=== PATIENT | female | born 1995 | race American Indian/Alaskan Native ===

== ENCOUNTER 2016-08-28 22:26 | Emergency (ER) | payer MEDICAID ==
[2016-08-28 22:32] VITALS: BP 179/81
[2016-08-28] MEDS ORDERED: Azithromycin 250 MG Tab PO ONE (22:47)
--- NOTE | 2016-08-28 22:57 | EDM.PDOC ---
ED HPI GENERAL MEDICAL PROBLEM - General Chief Complaint: ENT Problem Stated Complaint: SORE THROAT, BODY ACHES Time Seen by Provider: 08/28/16 22:48 Source of Information: Reports: Patient History Limitations: Reports: No limitations - History of Present Illness INITIAL COMMENTS - FREE TEXT/NARRATIVE: This 21 yo female patient reports to the ED with a 2-3 day history of a sore throat. The patient has not been seen in the clinic for these symptoms. The patient has been taking Tylenol and ibuprofen. Onset Date: 08/25/16 Duration: Constant, Getting worse Location: Reports: neck Quality: Reports: Ache, Sharp Severity: moderate Improves with: Reports: Medication Worsens with: Reports: Eating Treatments CYLINDER DEVALVER: Reports: Acetaminophen, NSAIDS, Other medication(s) Generalized Pain Score (Numeric/FACES): 7 - Related Data Allergies Allergy/AdvReac Type Severity Reaction Status Date / Time lansoprazole [From Prevacid] Allergy Hives Verified 08/28/16 22:39 Penicillins Allergy Hives Verified 08/28/16 22:39 Home Meds: Home Meds . 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: Neurological History: Reports: Concussion, Migraines Psychiatric History: Reports: Depression Endocrine/Metabolic History: Reports: Obesity/BMI 30+ Social & Family History - Family History Family Medical History: Noncontributory - Tobacco Use Smoking Status *Q: Unknown Ever Smoked Years of Tobacco use: 12 Packs/Tins Daily: 0.5 Used Tobacco, but Quit: No Second Hand Smoke Exposure: Yes - Caffeine Use Caffeine Use: Reports: Coffee - Alcohol Use Days Per Week of Alcohol Use: 0 - Recreational Drug Use Recreational Drug Use: No ED ROS ENT - Review of Systems Review Of Systems: ROS reveals no pertinent complaints other than HPI. ED EXAM, ENT - Physical Exam Exam: See Below Exam Limited By: No limitations General Appearance: alert, WD/WN, moderate distress, obese Eye Exam: bilateral eye: EOMI, normal inspection, PERRL Ears: normal external exam, normal canal, hearing grossly normal, normal TMs Nose: normal inspection, normal mucousa, no blood Mouth/Throat: Pharyngeal erythema, Tonsillar erythema, Tonsillar exudates Head: atraumatic, normocephalic Neck: normal inspection, supple, full range of motion, lymphadenopathy (L), lymphadenopathy (R), tender lateral Respiratory/Chest: no respiratory distress, lungs clear, normal breath sounds, no accessory muscle use, chest non-tender Cardiovascular: normal peripheral pulses, regular rate, rhythm, no edema, no gallop, no JVD, no murmur, no rub GI/Abdominal: Normal Bowel Sounds, Soft, Non-Tender, No Organomegaly, No Distention, No Abnormal Bruit, No Mass, Other (obese) (Female) Exam: Deferred Rectal (Female) Exam: Deferred Back: normal inspection, full range of motion Extremities: normal inspection, normal range of motion, non-tender, no pedal edema, normal capillary refill Neurological: alert, oriented, CN II-XII intact, normal cognition, normal gait, normal reflexes, no motor/sensory deficits Psychiatric: normal affect, normal mood Skin: Warm, Dry, Intact, Normal color, No rash Lymphatic: no adenopathy Course - Vital Signs Last Recorded V/S: Last Vital Signs Temp 37.0 C 08/28/16 22:30 Pulse 99 08/28/16 22:30 Resp 20 08/28/16 22:30 BP 179/81 H 08/28/16 22:30 Pulse Ox 100 08/28/16 22:30 - Orders/Labs/Meds Meds: Medications Discontinued Medications Generic Name Dose Route Start Last Admin Trade Name Robi PRN Reason Stop Dose Admin Azithromycin 500 mg 08/28/16 22:47 Zithromax PO 08/28/16 22:48 ONETIME ONE Departure - Departure Time of Disposition: 22:53 Disposition: Home, Self-Care 01 Condition: fair Clinical Impression: Strep pharyngitis - Discharge Information Instructions: Strep Throat, [id number] Forms: ED Department Discharge Care Plan Goals: The patient was advised of the examination and lab results during the visit. The patient was given an oral dose of Azithromycin while in the ED. The patient was discharged with a script for Azithromycin (250 mg) #4 to take 1 by mouth daily for 4 days. The patient should continue taking [id number] medications (Tylenol, ibuprofen) for temporary symptom relief. If the patient has any additional symptoms or concerns, the patient should follow-up with his primary care facility or return to the emergency department.
== END 2016-08-28 23:00 | disposition home or self-care (01) ==
LOC: DL.ED 22:26
DX: J02.0 Streptococcal pharyngitis (principal); K21.9 Gastro-esophageal reflux disease without esophagitis; G43.909 Migraine, unspecified, not intractable, without status migrainosus; F32.9 Major depressive disorder, single episode, unspecified; J45.909 Unspecified asthma, uncomplicated; Z88.0 Allergy status to penicillin
CPT/HCPCS: 87430; 99283; A9270

== ENCOUNTER 2016-08-30 12:05 | Emergency (ER) | payer MEDICAID ==
[2016-08-30 12:23] VITALS: BP 130/69
--- NOTE | 2016-08-30 12:32 | EDM.PDOC ---
[id number]: stomache pain [phone] Time Seen by Provider: 08/30/16 12:32 Source of Information: Reports: Patient, Old Records, RN, Significant Other History Limitations: Reports: No Limitations - History of Present Illness INITIAL COMMENTS - FREE TEXT/NARRATIVE: I have pain here, pointing to area of abdomen above the umbilicus. She was awakened once last night with the pain. She has had pain since this morning and has not eaten. Onset: Sudden Onset Date: 08/29/16 Onset Time: 06:30 Duration: Colic, Intermittent, Other (pain started about 1/2 hour after eating have a hot dog and some chips after a cook out last evening. The pain has been colicky, without radiation and lasts 10 minutes and resolves completely. The pain then recurrs.) Location: Reports: Other (She points to the area just above the umbilucus as to the pain location) Quality: Reports: Sharp Severity: Moderate Improves with: Reports: None Worsens with: Reports: None Context: Reports: Other (initially post-prandiol and then has been recurring. No prior history. No spicy or greasy food intolerance) Treatments ENERGY ASSISTANT: Reports: Acetaminophen Middle Abdominal Pain Score (Numeric/FACES): 8 - Related Data Allergies Allergy/AdvReac Type Severity Reaction Status Date / Time lansoprazole [From Prevacid] Allergy Hives Verified 08/30/16 12:20 Penicillins Allergy Hives Verified 08/30/16 12:20 Home Meds: Home Meds Azithromycin [Zithromax] 250 mg PO DAILY 08/30/16 [History] Past Medical History - Past Health History Medical/Surgical History: Denies Medical/Surgical History Respiratory History: Reports: Asthma, Bronchitis, Recurrent Gastrointestinal History: Reports: GERD 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: Neurological History: Reports: Concussion, Migraines Psychiatric History: Reports: Depression Endocrine/Metabolic History: Reports: Obesity/BMI 30+ Social & Family History - Family History Family Medical History: Noncontributory - Tobacco Use Smoking Status *Q: Never Smoker Years of Tobacco use: 12 Packs/Tins Daily: 0.5 Used Tobacco, but Quit: No Second Hand Smoke Exposure: No - Caffeine Use Caffeine Use: Reports: Coffee - Alcohol Use Days Per Week of Alcohol Use: 0 - Recreational Drug Use Recreational Drug Use: No ED ROS GENERAL - Review of Systems Review Of Systems: See Below Constitutional: Reports: Other (She had some body aches which have improved after starting the azithromycin). Denies: Fever HEENT: Reports: No Symptoms Respiratory: Reports: No Symptoms Cardiovascular: Reports: No Symptoms Endocrine: Denies: Fatigue GI/Abdominal: Reports: Abdominal Pain, Other (soft BM today which is normal for her. No BM yesteray.). Denies: Black Stool, Bloody Stool, Difficulty Swallowing , Distension, Nausea : Reports: No Symptoms, Other (currently menstruating) Musculoskeletal: Reports: Other (generalized body aches have improved) Skin: Reports: No Symptoms Neurological: Reports: No Symptoms. Denies: Headache Psychiatric: Reports: No Symptoms Hematologic/Lymphatic: Reports: No Symptoms ED EXAM, GI/ABD - Physical Exam Exam: See Below Exam Limited By: No Limitations General Appearance: Alert, WD/WN, No Apparent Distress Eyes: Bilateral: Normal Appearance Ears: Normal External Exam, Normal Canal, Hearing Grossly Normal, Normal TMs Nose: Normal Inspection, Normal Mucosa, No Blood Throat/Mouth: Normal Lips, Normal Gums, Normal Voice, Other (Tonsils enlarged, red and with thin exudates.) Neck: Normal Inspection, Supple, Non-Tender, Full Range of Motion Respiratory/Chest: No Respiratory Distress, Lungs Clear, Normal Breath Sounds, No Accessory Muscle Use, Chest Non-Tender Cardiovascular: Normal Peripheral Pulses, Regular Rate, Rhythm, No Edema, No Gallop, No JVD, No Murmur, No Rub GI/Abdominal: Normal Bowel Sounds, Soft, No Organomegaly, No Distention, Tenderness. No: Tympanic Bowel Sounds, Rebound (Tenderness in epigastrium and epigastrium. Mild guarding, but abdomen is soft.) Back Exam: Normal Inspection, Full Range of Motion. No: CVA Tenderness (L), CVA Tenderness (R), Muscle Spasm, Vertebral Tenderness Extremities: Normal Inspection, Normal Range of Motion, Non-Tender, Normal Capillary Refill, No Pedal Edema Neurological: Alert, Oriented, Normal Cognition Psychiatric: Normal Affect, Normal Mood Skin Exam: Warm, Dry, Intact, Normal Color, No Rash Lymphatic: Adenopathy (some bilateral mild to moderately enarged anterior upper cervical lymph node enlarged) Course - Vital Signs Last Recorded V/S: Last Vital Signs Temp 97.2 F 08/30/16 12:22 Pulse 88 08/30/16 12:22 Resp 20 08/30/16 12:22 BP 130/69 08/30/16 12:22 Pulse Ox 98 08/30/16 12:22 - Orders/Labs/Meds Labs: Laboratory Tests 08/30/16 08/30/16 08/30/16 Range/Units 12:06 12:06 12:35 WBC 15.2 H (5.0-10.0) 10^3/uL RBC 5.32 (4.2-5.4) 10^6/uL Hgb 12.4 (12.0-16.0) g/dL Hct 38.7 (37.0-47.0) % MCV 72.7 L (80-100) fL MCH 23.3 L (27.0-34.0) pg MCHC 32.0 L (33.0-35.0) g/dL Plt Count 293 (150-450) 10^3/uL Neut % (Auto) 51.1 (42.2-75.2) % Lymph % (Auto) 39.4 (20.5-50.1) % [place] % (Auto) 8.0 (2-8) % Eos % (Auto) 1.3 (1.0-3.0) % Baso % (Auto) 0.2 (0.0-1.0) % Sodium (135-145) mmol/L Potassium (3.6-5.0) mmol/L Chloride (101-111) mmol/L Carbon Dioxide (21.0-31.0) mmol/L Anion Gap BUN (7-18) mg/dL Creatinine (0.6-1.3) mg/dL Est Cr Clr Drug Dosing mL/min Estimated GFR (MDRD) BUN/Creatinine Ratio Glucose (74-105) mg/dL Calcium (8.4-10.2) mg/dl Total Bilirubin (0.2-1.0) mg/dL AST (10-42) IU/L ALT (10-60) IU/L Alkaline Phosphatase (42-121) IU/L Total Protein (6.7-8.2) g/dl Albumin (3.2-5.5) g/dl Globulin Albumin/Globulin Ratio Amylase (28-100) U/L Lipase (22-51) U/L Urine Color Straw (YELLOW) Urine Appearance Cloudy (CLEAR) Urine pH 5.5 (5.0-9.0) Ur Specific [place] 1.025 (1.005-1.030) Urine Protein 30 H (NEGATIVE) Urine Glucose (UA) Negative (NEGATIVE) Urine Ketones Negative (NEGATIVE) Urine Occult Blood Large H (NEGATIVE) Urine Nitrite Negative (NEGATIVE) Urine Bilirubin Small H (NEGATIVE) Urine Urobilinogen 0.2 (0.2-1.0) mg/dL Ur Leukocyte Esterase Trace H (NEGATIVE) Urine RBC 20-30 H /HPF Urine WBC 10-20 H (0-5/HPF) /HPF Ur Epithelial Cells Many H /HPF Urine Bacteria Many H (0-FEW/HPF) /HPF Urine Mucus Many H /LPF Urine HCG, Qual Negative 08/30/16 Range/Units 12:35 WBC (5.0-10.0) 10^3/uL RBC (4.2-5.4) 10^6/uL Hgb (12.0-16.0) g/dL Hct (37.0-47.0) % MCV (80-100) fL MCH (27.0-34.0) pg MCHC (33.0-35.0) g/dL Plt Count (150-450) 10^3/uL Neut % (Auto) (42.2-75.2) % Lymph % (Auto) (20.5-50.1) % [place] % (Auto) (2-8) % Eos % (Auto) (1.0-3.0) % Baso % (Auto) (0.0-1.0) % Sodium 135 (135-145) mmol/L Potassium 3.8 (3.6-5.0) mmol/L Chloride 106 (101-111) mmol/L Carbon Dioxide 23.0 (21.0-31.0) mmol/L Anion Gap 9.8 BUN 10 (7-18) mg/dL Creatinine 0.6 (0.6-1.3) mg/dL Est Cr Clr Drug Dosing 145.44 mL/min Estimated GFR (MDRD) > 60 BUN/Creatinine Ratio 16.66 Glucose 87 (74-105) mg/dL Calcium 8.5 (8.4-10.2) mg/dl Total Bilirubin 0.4 (0.2-1.0) mg/dL AST 32 (10-42) IU/L ALT 32 (10-60) IU/L Alkaline Phosphatase 109 (42-121) IU/L Total Protein 7.7 (6.7-8.2) g/dl Albumin 3.7 (3.2-5.5) g/dl Globulin 4.0 Albumin/Globulin Ratio 0.93 Amylase 35 (28-100) U/L Lipase 13 L (22-51) U/L Urine Color (YELLOW) Urine Appearance (CLEAR) Urine pH (5.0-9.0) Ur Specific [place] (1.005-1.030) Urine Protein (NEGATIVE) Urine Glucose (UA) (NEGATIVE) Urine Ketones (NEGATIVE) Urine Occult Blood (NEGATIVE) Urine Nitrite (NEGATIVE) Urine Bilirubin (NEGATIVE) Urine Urobilinogen (0.2-1.0) mg/dL Ur Leukocyte Esterase (NEGATIVE) Urine RBC /HPF Urine WBC (0-5/HPF) /HPF Ur Epithelial Cells /HPF Urine Bacteria (0-FEW/HPF) /HPF Urine Mucus /LPF Urine HCG, Qual Departure - Departure Time of Disposition: 14:38 Disposition: Against Medical Advice 07 Condition: good Clinical Impression: Abdominal pain Qualifiers: Abdominal location: unspecified location Qualified Code(s): R10.9 - Unspecified abdominal pain - Discharge Information Referrals: Sharon Hastings MD [Primary Care Provider] - Forms: ED Department Discharge
[2016-08-30 13:04] LABS: CHLORIDE,CL 106 mmol/L (101-111); SODIUM,NA 135 mmol/L (135-145)
--- NOTE | 2016-08-30 14:04 | US ---
Clinical history: 21-year-old 294 pound female with epigastric abdominal pain. Interpretation: Technically difficult exam (patient body habitus) unremarkable. Gallbladder normal size anatomic configuration identified in right upper quadrant beneath the liver margin is uniformly thin wall shows no sign of pericystic fluid, fixed intraluminal mucosal wall maxim yp or mobile dependent intraluminal "shadowing" gallstones. Homogeneous normal sono density the liver without sign discrete intrahepatic mass or intra/extrahepa tic biliary duct dilatation (common hepatic duct 4.3 mm and the common bile duct 6.7 mm). Pancreas obscured by gas. No ascites. CONCLUSION: Negative gallbladder and liver. Nonvisualization pancreas.
== END 2016-08-30 14:40 | disposition left against medical advice (07) ==
LOC: DL.ED 12:05
DX: R10.13 Epigastric pain (principal); J45.909 Unspecified asthma, uncomplicated; K21.9 Gastro-esophageal reflux disease without esophagitis; G43.909 Migraine, unspecified, not intractable, without status migrainosus; F32.9 Major depressive disorder, single episode, unspecified; E66.9 Obesity, unspecified; Z68.42 Body mass index [BMI] 45.0-49.9, adult; Z88.0 Allergy status to penicillin; Z88.8 Allergy status to other drugs, medicaments and biological substances
CPT/HCPCS: 36415; 76705; 80053; 81001; 81025; 82150; 83690; 85025; 87430; 99283

== ENCOUNTER 2017-02-24 06:36 | Day surgery (SDC) | payer MEDICAID ==
[~2017-02-24 06:36] MED LIST: Midazolam 1 MG/ML 2 ML SDV ONE; fentaNYL 100 MCG/2 ML SDV ONE
[2017-02-24] MEDS ORDERED: Midazolam 1 MG/ML 2 ML SDV IV ONE ×3 (06:37→07:50)
[2017-02-24] MEDS ORDERED: fentaNYL 100 MCG/2 ML SDV IV ONE ×3 (06:37→07:49)
[2017-02-24] MEDS ORDERED: Dextrose 5%-0.45% NaCl 1,000 ML IV SCH (07:10)
--- NOTE | 2017-02-24 08:48 | OR ---
DATE: 02/24/2017 PROCEDURE: Esophagogastroduodenoscopy and multiple pinch biopsies. INSTRUMENT USED: GIF-H180 Olympus video panendoscope. PREMEDICATIONS: No oral topical anesthesia used. Fentanyl 100 mcg intravenous, Versed 2 mg intravenous. The procedure was done under pulse oximetry, BP recording, and property assessment monitor. INDICATION: The patient with persistent abdominal pain, dyspepsia, heartburn, regurgitation, vomiting, as well as hematemesis, unexplained, and not responsive to medical measures. History of alcohol ingestion, large amount at times. Esophagogastroduodenoscopy is performed for detection of any active erosive lesions, Bella esophagus and/or malignancy also under consideration, H. pylori status to be determined. Endoscopic hemostasis therapy if needed. DESCRIPTION OF PROCEDURE: The scope was passed with ease. Adequate visualization of the esophagus was made from proximal to distal areas. No upper esophageal lesions identified. No distal esophageal stricture. No uphill or downhill esophageal varices. No Lu-Edwards tear. No evidence of erosive esophagitis by Universal criteria. No esophageal polyp or tumor mass identified. Z-line was seen at around 40 cm distal to the oral verge, configuration consistent with grade 1 by ZAP classification. No proximal gastric varices noted. Gastric fundus examination by retroflexion showed no polypoid lesions. No gastric ulcer, malignant mass, or vascular ectasia identified. Scattered gastric antral erosions were noted without bleeding from them. Duodenal bulb showed no ulcer. Visualized second part of the duodenum was unremarkable. Multiple pinch biopsies were taken from the gastric antrum and proximal body and sent for PyloriTek test for H. pylori, and if negative in an hour, tissue is to be sent for histopathology. No bleeding was noted from any of the visualized areas at the completion of examination. Photographs were taken of the duodenal bulb, gastric antrum, fundus, and distal esophagus. IMPRESSION: Gastric antral erosions. The patient tolerated the procedure well. [facility] /[id number]
[2017-02-24 10:28] VITALS: BP 129/77
== END 2017-02-24 09:47 | disposition home or self-care (01) ==
LOC: DL.ENDO 06:36
PROVIDERS: ATTEND Internal Medicine Gastroenterology
DX: K31.89 Other diseases of stomach and duodenum (principal); F17.210 Nicotine dependence, cigarettes, uncomplicated; E66.09 Other obesity due to excess calories; J45.909 Unspecified asthma, uncomplicated; Z88.0 Allergy status to penicillin; Z88.8 Allergy status to other drugs, medicaments and biological substances; Z79.899 Other long term (current) drug therapy
CPT/HCPCS: 43239; 87077; J7042; J2250; J3010

== ENCOUNTER 2017-08-20 01:21 | Emergency (ER) | payer MEDICAID ==
[2017-08-20] MEDS ORDERED: Cyclobenzaprine 10 MG Tab PO ONE (01:22)
[2017-08-20] MEDS ORDERED: Ketorolac 30 MG/ML SDV IM ONE (01:50)
--- NOTE | 2017-08-20 01:57 | EDM.PDOC ---
ED HPI GENERAL MEDICAL PROBLEM - General Chief Complaint: Back Pain or Injury Stated Complaint: LOWER BACK PAIN [phone] Time Seen by Provider: 08/20/17 01:40 Source of Information: Reports: Patient History Limitations: Reports: No Limitations - History of Present Illness INITIAL COMMENTS - FREE TEXT/NARRATIVE: This 22 yo female patient reports to the ED with lower back pain with shooting pains into her left hip. The patient reports she has been doing a lot of yard work and was cleaning her car this evening when her back pain got too bad to handle. The patient reported that she took an Aleve with little symptom relief. Onset: Today Duration: Constant Location: Reports: Back Quality: Reports: Ache Severity: Moderate Improves with: Reports: None Worsens with: Reports: None Associated Symptoms: Reports: No Other Symptoms Lower Back Pain Score (Numeric/FACES): 6 - Related Data Allergies Allergy/AdvReac Type Severity Reaction Status Date / Time lansoprazole [From Prevacid] Allergy Hives Verified 08/20/17 01:30 Penicillins Allergy Hives Verified 08/20/17 01:30 Home Meds: Home Meds . 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 OB/BYN History: delivered 02/2016 Musculoskeletal History: Reports: Fracture Other Musculoskeletal History: RIB FRACTURE, FX OF TIBIAL TUBERCLE, LEFT WRIST FX Neurological History: Reports: Concussion, Migraines Psychiatric History: Reports: Anxiety, Depression Endocrine/Metabolic History: Reports: Obesity/BMI 30+ Hematologic History: Reports: None Immunologic History: Reports: None Oncologic (Cancer) History: Reports: None Dermatologic History: Reports: Eczema - Infectious Disease History Infectious Disease History: Reports: None - Past Surgical History Head Surgeries/Procedures: Reports: None HEENT Surgical History: Reports: None Cardiovascular Surgical History: Reports: None Respiratory Surgical History: Reports: None GI Surgical History: Reports: None Female Surgical History: Reports: Other (See Below) Other Female Surgeries/Procedures: RIGHT BREAST CYST Endocrine Surgical History: Reports: None Neurological Surgical History: Reports: None Musculoskeletal Surgical History: Reports: None Oncologic Surgical History: Reports: None Dermatological Surgical History: Reports: None Social & Family History - Family History Family Medical History: Noncontributory - Tobacco Use Smoking Status *Q: Current Every Day Smoker Years of Tobacco use: 14 Packs/Tins Daily: 0.5 Used Tobacco, but Quit: No Second Hand Smoke Exposure: Yes - Caffeine Use Caffeine Use: Reports: Coffee, Soda - Alcohol Use Days Per Week of Alcohol Use: 0 - Recreational Drug Use Recreational Drug Use: No ED ROS GENERAL - Review of Systems Review Of Systems: ROS reveals no pertinent complaints other than HPI. ED EXAM,LOWER BACK PAIN/INJURY - Physical Exam Exam: See Below Exam Limited By: No Limitations General Appearance: Alert, WD/WN, Mild Distress, Obese Eye Exam: Bilateral Eye: EOMI, Normal Inspection, PERRL Ears: Normal External Exam, Normal Canal, Hearing Grossly Normal, Normal TMs Nose: Normal Inspection, Normal Mucosa, No Blood Throat/Mouth: Normal Inspection, Normal Lips, Normal Teeth, Normal Gums, Normal Oropharynx, Normal Voice, No Airway Compromise Head: Atraumatic, Normocephalic Neck: Normal Inspection, Supple, Non-Tender, Full Range of Motion Respiratory/Chest: No Respiratory Distress, Lungs Clear, Normal Breath Sounds, No Accessory Muscle Use, Chest Non-Tender Cardiovascular: Normal Peripheral Pulses, Regular Rate, Rhythm, No Edema, No Gallop, No JVD, No Murmur, No Rub GI/Abdominal: Normal Bowel Sounds, Soft, Non-Tender, No Organomegaly, No Distention, No Abnormal Bruit, No Mass, Other (obese) (Female) Exam: Deferred Rectal (Female) Exam: Deferred Back Exam: Vertebral Tenderness (lower back (L4) radiating to her hips (left)) Extremities: Normal Inspection, Normal Range of Motion, Non-Tender, No Pedal Edema, Normal Capillary Refill Neurological: Alert, Normal Mood/Affect, Normal Dorsiflexion, CN II-XII Intact, Normal Plantar Flexion, Normal Gait, Normal Reflexes, No Motor/Sensory Deficits , Oriented x 3 Psychiatric: Normal Affect, Normal Mood Skin Exam: Warm, Dry, Intact, Normal Color, No Rash Lymphatic: No Adenopathy Course - Vital Signs Last Recorded V/S: Last Vital Signs Temp 36.6 C 08/20/17 01:23 Pulse 69 08/20/17 01:23 Resp BP 123/73 08/20/17 01:23 Pulse Ox 98 08/20/17 01:23 - Orders/Labs/Meds Meds: Medications Discontinued Medications Generic Name Dose Route Start Last Admin Trade Name Robi PRN Reason Stop Dose Admin Ketorolac Tromethamine 60 mg 08/20/17 01:50 Toradol IM 08/20/17 01:51 ONETIME ONE Departure - Departure Time of Disposition: 01:55 Disposition: Home, Self-Care 01 Condition: Fair Clinical Impression: Low back pain Qualifiers: Chronicity: acute Back pain laterality: midline Sciatica presence: with sciatica Sciatica laterality: sciatica of left side Qualified Code(s): M54.42 - Lumbago with sciatica, left side - Discharge Information Instructions: Back Pain, Adult, [id number], Muscle Strain, [id number] Care Plan Goals: The patient was advised of the examination results. The patient was given an injection of Toradol while in the ED. The patient was discharged with a Flexeril (10 mg) to take at bedtime. The patient was also given a script for Toradol (10 mg) #20 to take 1 by mouth every 6 hours and Flexeril (10 mg) #10 to take 1 by mouth at bedtime as needed. If the patient has any additional symptoms or concerns, the patient should follow-up with her primary care facility or return to the emergency department.
[2017-08-20] MEDS ORDERED: Cyclobenzaprine 10 MG Tab ONE (02:01)
[2017-08-20 02:26] VITALS: BP 128/65
== END 2017-08-20 02:23 | disposition home or self-care (01) ==
LOC: DL.ED 01:21
DX: M54.42 Lumbago with sciatica, left side (principal); F17.210 Nicotine dependence, cigarettes, uncomplicated; Z88.0 Allergy status to penicillin; Z88.8 Allergy status to other drugs, medicaments and biological substances
CPT/HCPCS: 96372; 99283; J1885; A9270-GY

== ENCOUNTER 2017-09-21 22:44 | Emergency (ER) | payer MEDICAID ==
[2017-09-21] MEDS ORDERED: Albuterol/Ipratropium 3.0-0.5 MG/3 ML Neb Soln NEB ONE (23:38)
[2017-09-22] MEDS ORDERED: predniSONE 20 MG Tab PO ONE (00:27)
--- NOTE | 2017-09-22 00:31 | EDM.PDOC ---
ED HPI GENERAL MEDICAL PROBLEM - General Chief Complaint: Respiratory Problem Stated Complaint: CHEST TIGHT AFTER INHALER [id number] Time Seen by Provider: 09/21/17 23:10 Source of Information: Reports: Patient History Limitations: Reports: No Limitations - History of Present Illness INITIAL COMMENTS - FREE TEXT/NARRATIVE: Inhaler not helping today, cough, wheeze. No Fever. Hx asthma. Daily inhaler use Bilateral Chest Pain Score (Numeric/FACES): 7 - Related Data Allergies Allergy/AdvReac Type Severity Reaction Status Date / Time lansoprazole [From Prevacid] Allergy Hives Verified 09/21/17 23:01 Penicillins Allergy Hives Verified 09/21/17 23:01 Home Meds: Home Meds Albuterol Sulfate 2.5 mg IH Q4HR PRN 09/21/17 [History] Albuterol [Proventil HFA] 2 puff INH Q4H PRN 09/21/17 [History] Past Medical History - Past Health History Medical/Surgical History: Denies Medical/Surgical History HEENT History: Reports: Otitis Media Cardiovascular History: Reports: None Respiratory History: Reports: Asthma, Bronchitis, Recurrent Gastrointestinal History: Reports: Chronic Constipation, Chronic Diarrhea, GERD , Irritable Bowel Syndrome, Other (See Below) Other Gastrointestinal History: GASTROENTERITIS Genitourinary History: Reports: None 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 02/2016 Musculoskeletal History: Reports: Fracture Other Musculoskeletal History: RIB FRACTURE, FX OF TIBIAL TUBERCLE, LEFT WRIST FX Neurological History: Reports: Concussion, Migraines Psychiatric History: Reports: Anxiety, Depression Endocrine/Metabolic History: Reports: Obesity/BMI 30+ Hematologic History: Reports: None Immunologic History: Reports: None Oncologic (Cancer) History: Reports: None Dermatologic History: Reports: Eczema - Infectious Disease History Infectious Disease History: Reports: None - Past Surgical History Head Surgeries/Procedures: Reports: None HEENT Surgical History: Reports: None Cardiovascular Surgical History: Reports: None Respiratory Surgical History: Reports: None GI Surgical History: Reports: None Female Surgical History: Reports: Other (See Below) Other Female Surgeries/Procedures: RIGHT BREAST CYST Endocrine Surgical History: Reports: None Neurological Surgical History: Reports: None Musculoskeletal Surgical History: Reports: None Oncologic Surgical History: Reports: None Dermatological Surgical History: Reports: None Social & Family History - Family History Family Medical History: Noncontributory - Tobacco Use Smoking Status *Q: Former Smoker Used Tobacco, but Quit: Yes Month/Year Tobacco Last Used: august 2017 Second Hand Smoke Exposure: Yes - Caffeine Use Caffeine Use: Reports: Coffee, Soda - Recreational Drug Use Recreational Drug Use: No ED ROS GENERAL - Review of Systems Review Of Systems: See Below Constitutional: Reports: No Symptoms HEENT: Reports: Throat Pain (cough) Respiratory: Reports: Shortness of Breath, Wheezing, Pleuritic Chest Pain, Cough. Denies: Sputum Cardiovascular: Reports: No Symptoms GI/Abdominal: Reports: No Symptoms Musculoskeletal: Reports: No Symptoms Skin: Reports: No Symptoms Neurological: Reports: No Symptoms Psychiatric: Reports: No Symptoms ED EXAM, GENERAL - Physical Exam Exam: See Below Exam Limited By: No Limitations General Appearance: Alert Eye Exam: Bilateral Eye: EOMI Ears: Normal External Exam, Hearing Grossly Normal Ear Exam: Bilateral Ear: TM normal Nose: Normal Inspection Throat/Mouth: Normal Inspection Head: Atraumatic, Normocephalic Neck: Normal Inspection Respiratory/Chest: Decreased Breath Sounds, Wheezing (bilateral throughout), Prolonged Expiration GI/Abdominal: Normal Bowel Sounds Back Exam: Normal Inspection Extremities: Normal Inspection, Normal Range of Motion Psychiatric: Normal Affect Skin Exam: Warm, Dry, Intact, Normal Color Course - Vital Signs Last Recorded V/S: Last Vital Signs Temp 97.4 F 09/22/17 01:23 Pulse 85 09/22/17 01:23 Resp 14 09/22/17 01:23 BP 145/65 H 09/22/17 01:23 Pulse Ox 99 09/22/17 01:23 - Orders/Labs/Meds Labs: Laboratory Tests 09/21/17 Range/Units 23:45 HCG, Qual Negative Meds: Medications Discontinued Medications Generic Name Dose Route Start Last Admin Trade Name Freq PRN Reason Stop Dose Admin Albuterol/Ipratropium 3 ml 09/21/17 23:38 09/21/17 23:41 Duoneb 3.0-0.5 Mg/3 Ml NEB 09/21/17 23:39 3 ml ONETIME ONE Administration Prednisone 40 mg 09/22/17 00:27 09/22/17 00:36 Prednisone PO 09/22/17 00:28 40 mg ONETIME ONE Administration - Radiology Interpretation Free Text/Narrative:: CXR negative - Re-Assessments/Exams Free Text/Narrative Re-Assessment/Exam: 09/25/17 14:23 Improved airexchange following Nebulizer, Decreased cough, Conversing full sentences. Departure - Departure Time of Disposition: 01:15 Disposition: Home, Self-Care 01 Condition: Good Clinical Impression: Acute asthma - Discharge Information Instructions: Asthma, Adult Referrals: Gary Mancilla [employer] [Primary Care Provider] - Forms: ED Department Discharge Additional Instructions: Prednisone 40x 3 days, 30 x 3 days, 20 x 3 days, 10 x 3 days Continue nebulizer treatments every 4 hours as needed increase fluid intake follow up if not improving or symptoms worsen
[2017-09-22 01:24] VITALS: BP 145/65
== END 2017-09-22 01:24 | disposition home or self-care (01) ==
LOC: DL.ED 22:44
DX: J45.909 Unspecified asthma, uncomplicated (principal); E66.9 Obesity, unspecified; Z87.891 Personal history of nicotine dependence; Z88.0 Allergy status to penicillin; Z88.8 Allergy status to other drugs, medicaments and biological substances
CPT/HCPCS: 36415; 71046; 84703; 99284; A9270

== ENCOUNTER 2017-11-11 03:22 | Emergency (ER) | payer MEDICAID ==
[2017-11-11] MEDS ORDERED: Albuterol/Ipratropium 3.0-0.5 MG/3 ML Neb Soln NEB ONE (03:35)
--- NOTE | 2017-11-11 03:42 | EDM.PDOC ---
ED HPI GENERAL MEDICAL PROBLEM - General Chief Complaint: Respiratory Problem Stated Complaint: DIFFICULTY BREATHING [id number] Time Seen by Provider: 11/11/17 03:30 Source of Information: Reports: Patient History Limitations: Reports: No Limitations - History of Present Illness INITIAL COMMENTS - FREE TEXT/NARRATIVE: This 22 yo female patient reports to the ED with increased shortness of breath. The patient reports she started to have symptoms this morning. The patient reports she has taken 40 mg of Prednisone 2 times today and done 2 nebulizer treatments with no change in her symptoms. The patient also reports she has been congested for the past 24 hours. The patient has not been seen by her primary care provider. Onset Date: 11/10/17 Onset Time: 05:00 Duration: Constant Location: Reports: Generalized Quality: Reports: Other Severity: Moderate Improves with: Reports: None Worsens with: Reports: None Associated Symptoms: Reports: Cough, Shortness of Breath Lower Back Pain Score (Numeric/FACES): 5 - Related Data Allergies Allergy/AdvReac Type Severity Reaction Status Date / Time lansoprazole [From Prevacid] Allergy Hives Verified 11/11/17 03:31 Penicillins Allergy Hives Verified 11/11/17 03:31 Home Meds: Home Meds Albuterol Sulfate 2.5 mg IH Q4HR PRN 09/21/17 [History] Albuterol [Proventil HFA] 2 puff INH Q4H PRN 09/21/17 [History] predniSONE 20 mg PO DAILY 11/11/17 [History] Past Medical History - Past Health History Medical/Surgical History: Denies Medical/Surgical History HEENT History: Reports: Otitis Media Cardiovascular History: Reports: None Respiratory History: Reports: Asthma, Bronchitis, Recurrent Gastrointestinal History: Reports: Chronic Constipation, Chronic Diarrhea, GERD , Irritable Bowel Syndrome, Other (See Below) Other Gastrointestinal History: GASTROENTERITIS Genitourinary History: Reports: None 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 Musculoskeletal History: Reports: Fracture Other Musculoskeletal History: RIB FRACTURE, FX OF TIBIAL TUBERCLE, LEFT WRIST FX Neurological History: Reports: Concussion, Migraines Psychiatric History: Reports: Anxiety, Depression Endocrine/Metabolic History: Reports: Obesity/BMI 30+ Hematologic History: Reports: None Immunologic History: Reports: None Oncologic (Cancer) History: Reports: None Dermatologic History: Reports: Eczema - Infectious Disease History Infectious Disease History: Reports: None - Past Surgical History Head Surgeries/Procedures: Reports: None HEENT Surgical History: Reports: None Cardiovascular Surgical History: Reports: None Respiratory Surgical History: Reports: None GI Surgical History: Reports: None Female Surgical History: Reports: Other (See Below) Other Female Surgeries/Procedures: RIGHT BREAST CYST Endocrine Surgical History: Reports: None Neurological Surgical History: Reports: None Musculoskeletal Surgical History: Reports: None Oncologic Surgical History: Reports: None Dermatological Surgical History: Reports: None Social & Family History - Family History Family Medical History: Noncontributory - Tobacco Use Smoking Status *Q: Former Smoker Used Tobacco, but Quit: Yes Month/Year Tobacco Last Used: 2 month - Caffeine Use Caffeine Use: Reports: Coffee, Soda - Recreational Drug Use Recreational Drug Use: No ED ROS GENERAL - Review of Systems Review Of Systems: ROS reveals no pertinent complaints other than HPI. ED EXAM, GENERAL - Physical Exam Exam: See Below Exam Limited By: No Limitations General Appearance: Alert, WD/WN, Moderate Distress, Obese Eye Exam: Bilateral Eye: EOMI, Normal Inspection, PERRL Ears: Normal External Exam, Normal Canal, Hearing Grossly Normal, Normal TMs Nose: Normal Inspection, Normal Mucosa, No Blood Throat/Mouth: Normal Inspection, Normal Lips, Normal Teeth, Normal Gums, Normal Oropharynx, Normal Voice, No Airway Compromise Head: Atraumatic, Normocephalic Neck: Normal Inspection, Supple, Non-Tender, Full Range of Motion Respiratory/Chest: Decreased Breath Sounds, Rhonchi, Wheezing Cardiovascular: Normal Peripheral Pulses, Regular Rate, Rhythm, No Edema, No Gallop, No JVD, No Murmur, No Rub GI/Abdominal: Normal Bowel Sounds, Soft, Non-Tender, No Organomegaly, No Distention, No Abnormal Bruit, No Mass (Female) Exam: Deferred Rectal (Female) Exam: Deferred Back Exam: Normal Inspection, Full Range of Motion, NT Extremities: Normal Inspection, Normal Range of Motion, Non-Tender, Normal Capillary Refill, No Pedal Edema Neurological: Alert, Oriented, CN II-XII Intact, Normal Cognition, Normal Gait, Normal Reflexes, No Motor/Sensory Deficits Psychiatric: Normal Affect, Normal Mood Skin Exam: Warm, Dry, Intact, Normal Color, No Rash Lymphatic: No Adenopathy Course - Vital Signs Last Recorded V/S: Last Vital Signs Temp 37.3 C 11/11/17 03:25 Pulse 111 H 11/11/17 03:25 Resp 24 H 11/11/17 03:25 BP 147/92 H 11/11/17 03:25 Pulse Ox 94 L 11/11/17 03:25 - Orders/Labs/Meds Orders: Active Orders 24 hr Category Date Time Status RT Aerosol Therapy [RC] ASDIRECTED Care 11/11/17 03:35 Ordered Labs: Laboratory Tests 11/11/17 11/11/17 Range/Units 03:42 03:42 WBC 12.3 H (5.0-10.0) 10^3/uL RBC 5.28 (4.2-5.4) 10^6/uL Hgb 13.1 (12.0-16.0) g/dL Hct 40.9 (37.0-47.0) % MCV 77.5 L D (80-100) fL MCH 24.8 L (27.0-34.0) pg MCHC 32.0 L (33.0-35.0) g/dL Plt Count 293 (150-450) 10^3/uL Neut % (Auto) 69.3 (42.2-75.2) % Lymph % (Auto) 23.3 (20.5-50.1) % [place] % (Auto) 6.8 (2-8) % Eos % (Auto) 0.3 L (1.0-3.0) % Baso % (Auto) 0.3 (0.0-1.0) % Sodium 138 (135-145) mmol/L Potassium 3.5 L (3.6-5.0) mmol/L Chloride 108 (101-111) mmol/L Carbon Dioxide 22.0 (21.0-31.0) mmol/L Anion Gap 11.5 BUN 11 (7-18) mg/dL Creatinine 0.7 (0.6-1.3) mg/dL Est Cr Clr Drug Dosing 123.63 mL/min Estimated GFR (MDRD) > 60 BUN/Creatinine Ratio 15.71 Glucose 164 H (74-105) mg/dL Calcium 8.6 (8.4-10.2) mg/dl Total Bilirubin 0.4 (0.2-1.0) mg/dL AST 23 (10-42) IU/L ALT 18 (10-60) IU/L Alkaline Phosphatase 108 (42-121) IU/L Total Protein 7.8 (6.7-8.2) g/dl Albumin 3.5 (3.2-5.5) g/dl Globulin 4.3 Albumin/Globulin Ratio 0.81 Meds: Medications Discontinued Medications Generic Name Dose Route Start Last Admin Trade Name Robi PRN Reason Stop Dose Admin Albuterol/Ipratropium 3 ml 11/11/17 03:35 11/11/17 03:39 Duoneb 3.0-0.5 Mg/3 Ml NEB 11/11/17 03:36 3 ml ONETIME ONE Administration Ceftriaxone Sodium 1 gm 11/11/17 04:16 Rocephin IVPUSH 11/11/17 04:17 ONETIME ONE Departure - Departure Time of Disposition: 04:18 Disposition: Home, Self-Care 01 Condition: Fair Clinical Impression: Asthma exacerbation Qualifiers: Asthma severity: moderate Asthma persistence: persistent Qualified Code(s): J45.41 - Moderate persistent asthma with (acute) exacerbation URI (upper respiratory infection) Qualifiers: URI type: unspecified URI Qualified Code(s): J06.9 - Acute upper respiratory infection, unspecified - Discharge Information *PRESCRIPTION DRUG MONITORING PROGRAM REVIEWED*: Not Applicable *COPY OF PRESCRIPTION DRUG MONITORING REPORT IN PATIENT DIPIKA: Not Applicable Instructions: Acute Bronchitis, Adult, [id number], Asthma, Adult, Easy-to- Read Forms: ED Department Discharge Care Plan Goals: The patient was advised of the examination, lab and x-ray results during the visit. The patient was given a DuoNeb treatment and a dose of IV Rocephin while in the ED. The patient was discharged with a script for Omnicef (300 mg) to take 1 by mouth 2 times per day for 7 days and Prednisone (20 mg) #8 to take 2 by mouth daily for 4 days. If the patient has any additional symptoms or concerns, the patient should follow-up with her primary care facility or return to the emergency department. - My Orders Last 24 Hours: My Active Orders 11/11/17 03:35 RT Aerosol Therapy [RC] ASDIRECTED - Assessment/Plan Last 24 Hours: My Active Orders 11/11/17 03:35 RT Aerosol Therapy [RC] ASDIRECTED
[2017-11-11 04:08] LABS: ANION GAP 11.5; CHLORIDE,CL 108 mmol/L (101-111); SODIUM,NA 138 mmol/L (135-145)
[2017-11-11] MEDS ORDERED: cefTRIAXone 1 GM Vial IVPUSH ONE (04:16)
[2017-11-11 04:27] VITALS: BP 134/77
== END 2017-11-11 04:30 | disposition home or self-care (01) ==
LOC: DL.ED 03:22
DX: J45.41 Moderate persistent asthma with (acute) exacerbation (principal); J06.9 Acute upper respiratory infection, unspecified; J45.909 Unspecified asthma, uncomplicated; F32.9 Major depressive disorder, single episode, unspecified; F41.9 Anxiety disorder, unspecified; Z88.0 Allergy status to penicillin; Z79.899 Other long term (current) drug therapy; Z87.891 Personal history of nicotine dependence
CPT/HCPCS: 36415; 71046; 80053; 85025; 96374; 99284; J0696

== ENCOUNTER 2017-11-29 07:29 | Emergency (ER) | payer MEDICAID ==
[2017-11-29 07:51] VITALS: BP 106/80
[2017-11-29] MEDS ORDERED: Acetaminophen 325 MG Tab PO ONE (07:57)
--- NOTE | 2017-11-29 08:25 | EDM.PDOC ---
ED HPI GENERAL MEDICAL PROBLEM - General Chief Complaint: Upper Extremity Injury/Pain Stated Complaint: LEFT ARM, ABOVE ELBOW Time Seen by Provider: 11/29/17 07:45 Source of Information: Reports: Patient, Family (), RN, RN Notes Reviewed History Limitations: Reports: Intoxication - History of Present Illness INITIAL COMMENTS - FREE TEXT/NARRATIVE: Pt states that she "got really drunk" last night and fell while checking into a hotel. She presents to the ER this morning with c/o pain to the left elbow as a result from the fall last night. She admits to a few other bruises and minor scrapes but is not concerned with them. Denies head injury or LOC. Onset: Today Duration: Constant Location: Reports: Upper Extremity, Left Quality: Reports: Ache Severity: Moderate Improves with: Reports: None Worsens with: Reports: None Associated Symptoms: Reports: No Other Symptoms Left Elbow Pain Score (Numeric/FACES): 9 - Related Data Allergies Allergy/AdvReac Type Severity Reaction Status Date / Time lansoprazole [From Prevacid] Allergy Hives Verified 11/11/17 03:31 Penicillins Allergy Hives Verified 11/11/17 03:31 Home Meds: Home Meds Albuterol Sulfate 2.5 mg IH Q4HR PRN 09/21/17 [History] Albuterol [Proventil HFA] 2 puff INH Q4H PRN 09/21/17 [History] Past Medical History - Past Health History Medical/Surgical History: Denies Medical/Surgical History HEENT History: Reports: Otitis Media Cardiovascular History: Reports: None Respiratory History: Reports: Asthma, Bronchitis, Recurrent Gastrointestinal History: Reports: Chronic Constipation, Chronic Diarrhea, GERD , Irritable Bowel Syndrome, Other (See Below) Other Gastrointestinal History: GASTROENTERITIS Genitourinary History: Reports: None 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 Musculoskeletal History: Reports: Fracture Other Musculoskeletal History: RIB FRACTURE, FX OF TIBIAL TUBERCLE, LEFT WRIST FX Neurological History: Reports: Concussion, Migraines Psychiatric History: Reports: Anxiety, Depression Endocrine/Metabolic History: Reports: Obesity/BMI 30+ Hematologic History: Reports: None Immunologic History: Reports: None Oncologic (Cancer) History: Reports: None Dermatologic History: Reports: Eczema - Infectious Disease History Infectious Disease History: Reports: None - Past Surgical History Head Surgeries/Procedures: Reports: None HEENT Surgical History: Reports: None Cardiovascular Surgical History: Reports: None Respiratory Surgical History: Reports: None GI Surgical History: Reports: None Female Surgical History: Reports: Other (See Below) Other Female Surgeries/Procedures: RIGHT BREAST CYST Endocrine Surgical History: Reports: None Neurological Surgical History: Reports: None Musculoskeletal Surgical History: Reports: None Oncologic Surgical History: Reports: None Dermatological Surgical History: Reports: None Social & Family History - Family History Family Medical History: Noncontributory - Tobacco Use Smoking Status *Q: Light Tobacco Smoker Years of Tobacco use: 14 Packs/Tins Daily: 1 - Caffeine Use Caffeine Use: Reports: Coffee - Alcohol Use Days Per Week of Alcohol Use: 3 Number of Drinks Per Day: 12 Total Drinks Per Week: 36 - Recreational Drug Use Recreational Drug Use: No - Living Situation & Occupation Living situation: Reports: , with Spouse Review of Systems - Review of Systems Review Of Systems: ROS reveals no pertinent complaints other than HPI. ED EXAM, GENERAL - Physical Exam Exam: See Below Exam Limited By: No Limitations General Appearance: Alert, WD/WN, No Apparent Distress, Obese Nose: Normal Inspection Throat/Mouth: Normal Inspection, Normal Lips, Normal Voice, No Airway Compromise Head: Atraumatic, Normocephalic Neck: Normal Inspection, Supple, Non-Tender, Full Range of Motion Respiratory/Chest: No Respiratory Distress Cardiovascular: Normal Peripheral Pulses Back Exam: Normal Inspection, Full Range of Motion Extremities: Normal Capillary Refill, Arm Pain (left elbow with full but painful ROM with no visible bruising). No: Joint Swelling Neurological: Alert, Oriented, CN II-XII Intact, Normal Cognition, Normal Gait, No Motor/Sensory Deficits Psychiatric: Normal Affect, Normal Mood Skin Exam: Warm, Dry (superficial abrasions to B/L elbows) Course - Vital Signs Last Recorded V/S: Last Vital Signs Temp 37.4 C 11/29/17 07:38 Pulse 108 H 11/29/17 07:38 Resp 22 H 11/29/17 07:38 BP 106/80 11/29/17 07:38 Pulse Ox 98 11/29/17 07:38 - Orders/Labs/Meds Orders: Active Orders 24 hr Category Date Time Status Vaccines to be Administered [RC] PER UNIT ROUTINE Care 11/29/17 08:39 Ordered Diphth,Pertuss(Acell),Tet Vac [Adacel] Med 11/29/17 08:39 Once 0.5 ml IM .ONCE ONE DME for Discharge [COMM] Routine Oth 11/29/17 08:38 Ordered Medication Orders Diphtheria/Tetanus/Acell Pertussis (Adacel) 0.5 ml IM .ONCE ONE Stop: 11/29/17 08:40 Meds: Medications Generic Name Dose Route Start Last Admin Trade Name Freq PRN Reason Stop Dose Admin Diphtheria/Tetanus/Acell Pertussis 0.5 ml 11/29/17 08:39 Adacel IM 11/29/17 08:40 .ONCE ONE Discontinued Medications Generic Name Dose Route Start Last Admin Trade Name Freq PRN Reason Stop Dose Admin Acetaminophen 650 mg 11/29/17 07:57 11/29/17 08:06 Tylenol PO 11/29/17 07:58 650 mg NOW ONE Administration Bacitracin 1 dose 11/29/17 08:38 Bacitracin Oint 1 Gm TOP 11/29/17 08:39 ONETIME ONE - Radiology Interpretation Free Text/Narrative:: XR Left Elbow: no fracture, see Rad. report. Departure - Departure Time of Disposition: 08:45 Disposition: Home, Self-Care 01 Condition: Good Clinical Impression: Abrasions of multiple sites Sprain of left elbow Qualifiers: Encounter type: initial encounter Qualified Code(s): S53.402A - Unspecified sprain of left elbow, initial encounter - Discharge Information Instructions: RICE for Routine Care of Injuries, [id number], How to Use a Sling, [id number] Forms: ED Department Discharge Additional Instructions: Activity as tolerated. Follow up in clinic if not improving in 5 to 7 days as expected. - My Orders Last 24 Hours: My Active Orders 11/29/17 08:38 DME for Discharge [COMM] Routine 11/29/17 08:39 Vaccines to be Administered [RC] PER UNIT ROUTINE Diphth,Pertuss(Acell),Tet Vac [Adacel] 0.5 ml IM .ONCE ONE - Assessment/Plan Last 24 Hours: My Active Orders 11/29/17 08:38 DME for Discharge [COMM] Routine 11/29/17 08:39 Vaccines to be Administered [RC] PER UNIT ROUTINE Diphth,Pertuss(Acell),Tet Vac [Adacel] 0.5 ml IM .ONCE ONE
[2017-11-29] MEDS ORDERED: Bacitracin Oint 1 GM U/D Packet TOP ONE (08:38)
[2017-11-29] MEDS ORDERED: Diphtheria,Pertussis(Acell),Tetanus Vaccine 0.5 ML SDV IM ONE (08:39)
== END 2017-11-29 08:54 | disposition home or self-care (01) ==
LOC: DL.ED 07:29
DX: S53.402A Unspecified sprain of left elbow, initial encounter (principal); S50.311A Abrasion of right elbow, initial encounter; Z88.0 Allergy status to penicillin; Z88.8 Allergy status to other drugs, medicaments and biological substances; E66.9 Obesity, unspecified; F17.210 Nicotine dependence, cigarettes, uncomplicated; W19.XXXA Unspecified fall, initial encounter; Y92.59 Other trade areas as the place of occurrence of the external cause
CPT/HCPCS: 73080; 90471; 90715; 99283; A9270

== ENCOUNTER 2018-12-17 17:39 | Emergency (ER) | payer SELFPAY ==
[2018-12-17 17:52] VITALS: BP 126/67
[2018-12-17] MEDS ORDERED: Albuterol/Ipratropium 3.0-0.5 MG/3 ML Neb Soln NEB ONE (19:56)
[2018-12-17] MEDS ORDERED: Azithromycin 250 MG Tab PO ONE (19:57)
[2018-12-17] MEDS ORDERED: predniSONE 20 MG Tab PO ONE (19:57)
[2018-12-17] MEDS ORDERED: Albuterol 6.7 GM Inhaler INH ONE (20:13)
--- NOTE | 2018-12-17 20:19 | EDM.PDOC ---
ED HPI GENERAL MEDICAL PROBLEM - General Chief Complaint: Respiratory Problem Stated Complaint: SICK Time Seen by Provider: 12/17/18 19:15 Source of Information: Reports: Patient History Limitations: Reports: No Limitations - History of Present Illness INITIAL COMMENTS - FREE TEXT/NARRATIVE: ED with c/o SOB x 4 days, sore throat x 3 days. Hx asthma, has run out of inhaler Rx. Now living in [place], here visiting. No fevers. Smoker 1/2 pack per day unable to last 2 days . Coughing productive at times. Wheezing. No GI sx. Left ear pain. Bilateral Chest Pain Score (Numeric/FACES): 5 - Related Data Allergies Allergy/AdvReac Type Severity Reaction Status Date / Time Penicillins Allergy Intermediate Hives Verified 12/17/18 17:54 lansoprazole [From Prevacid] Allergy Hives Verified 11/11/17 03:31 Home Meds: Home Meds Albuterol Sulfate 2.5 mg IH Q4HR PRN 09/21/17 [History] Albuterol [Proventil HFA] 2 puff INH Q4H PRN 09/21/17 [History] Past Medical History - Past Health History Medical/Surgical History: Denies Medical/Surgical History HEENT History: Reports: Otitis Media Cardiovascular History: Reports: None Respiratory History: Reports: Asthma, Bronchitis, Recurrent Gastrointestinal History: Reports: Chronic Constipation, Chronic Diarrhea, GERD , Irritable Bowel Syndrome, Other (See Below) Other Gastrointestinal History: GASTROENTERITIS Genitourinary History: Reports: None 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 [employer]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[employer]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 [employer] 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: 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 02/2016 Musculoskeletal History: Reports: Fracture Other Musculoskeletal History: RIB FRACTURE, FX OF TIBIAL TUBERCLE, LEFT WRIST FX Neurological History: Reports: Concussion, Migraines Psychiatric History: Reports: Anxiety, Depression Endocrine/Metabolic History: Reports: Obesity/BMI 30+ Hematologic History: Reports: None Immunologic History: Reports: None Oncologic (Cancer) History: Reports: None Dermatologic History: Reports: Eczema - Infectious Disease History Infectious Disease History: Reports: None - Past Surgical History Head Surgeries/Procedures: Reports: None HEENT Surgical History: Reports: None Cardiovascular Surgical History: Reports: None Respiratory Surgical History: Reports: None GI Surgical History: Reports: None Female Surgical History: Reports: Other (See Below) Other Female Surgeries/Procedures: RIGHT BREAST CYST Endocrine Surgical History: Reports: None Neurological Surgical History: Reports: None Musculoskeletal Surgical History: Reports: None Oncologic Surgical History: Reports: None Dermatological Surgical History: Reports: None Social & Family History - Family History Family Medical History: Noncontributory - Tobacco Use Smoking Status *Q: Current Every Day Smoker Years of Tobacco use: 6 Packs/Tins Daily: 0.5 - Caffeine Use Caffeine Use: Reports: Coffee - Recreational Drug Use Recreational Drug Use: No - Living Situation & Occupation Living situation: Reports: , with Spouse ED ROS GENERAL - Review of Systems Review Of Systems: ROS reveals no pertinent complaints other than HPI. ED EXAM, GENERAL - Physical Exam Exam: See Below Exam Limited By: No Limitations General Appearance: Alert, Mild Distress Eye Exam: Bilateral Eye: EOMI Ear Exam: Bilateral Ear: Erythema, TM Red, Other (fluid bilaterall) Nose: Normal Inspection Throat/Mouth: Inflammation Head: Atraumatic, Normocephalic Neck: Normal Inspection, Full Range of Motion, Lymphadenopathy (L), Lymphadenopathy (R) Respiratory/Chest: Wheezing (bilatera), Other (diminished) Cardiovascular: Normal Peripheral Pulses GI/Abdominal: Normal Bowel Sounds Extremities: Normal Inspection Neurological: Alert, Oriented, Normal Cognition Psychiatric: Normal Affect, Normal Mood Skin Exam: Warm, Dry, Intact, Normal Color Course - Vital Signs Last Recorded V/S: Last Vital Signs Temp 97.4 F 12/17/18 17:51 Pulse 88 12/17/18 17:51 Resp 16 12/17/18 17:51 BP 126/67 12/17/18 17:51 Pulse Ox 92 L 12/17/18 17:51 - Orders/Labs/Meds Orders: Active Orders 24 hr Category Date Time Status RT Aerosol Therapy [RC] ASDIRECTED Care 12/17/18 19:56 Active CULTURE STREP A CONFIRMATION [RM] Stat Lab 12/17/18 19:59 Results STREP SCRN A RAPID W CULT CONF [RM] Stat Lab 12/17/18 19:59 Results Meds: Medications Discontinued Medications Generic Name Dose Route Start Last Admin Trade Name Freq PRN Reason Stop Dose Admin Albuterol Confirm 12/17/18 20:13 Proventil Hfa Administered 12/17/18 20:14 Dose 6.7 gm INH .STK-MED ONE Albuterol/Ipratropium 3 ml 12/17/18 19:56 12/17/18 20:18 Duoneb 3.0-0.5 Mg/3 Ml NEB 12/17/18 19:57 3 ml ONETIME ONE Administration Azithromycin 500 mg 12/17/18 19:57 12/17/18 20:18 Zithromax PO 12/17/18 19:58 500 mg ONETIME ONE Administration Prednisone 40 mg 12/17/18 19:57 12/17/18 20:18 Prednisone PO 12/17/18 19:58 40 mg ONETIME ONE Administration Departure - Departure Time of Disposition: 20:14 Disposition: Home, Self-Care 01 Condition: Good Clinical Impression: Asthma exacerbation Qualifiers: Asthma severity: moderate Asthma persistence: persistent Qualified Code(s): J45.41 - Moderate persistent asthma with (acute) exacerbation Pharyngitis Qualifiers: Pharyngitis/tonsillitis etiology: unspecified etiology Qualified Code(s): J02.9 - Acute pharyngitis, unspecified Bilateral otitis media Qualifiers: Otitis media type: suppurative Chronicity: acute Recurrence: non-recurrent Spontaneous tympanic membrane rupture: without spontaneous rupture Qualified Code(s): H66.003 - Acute suppurative otitis media without spontaneous rupture of ear drum, bilateral - Discharge Information *PRESCRIPTION DRUG MONITORING PROGRAM REVIEWED*: No *COPY OF PRESCRIPTION DRUG MONITORING REPORT IN PATIENT DIPIKA: No Instructions: Asthma, Adult, [id number] Forms: ED Department Discharge Additional Instructions: alternate tylenol and ibuprofen every 4 hours as needed for discomfort increase fluid intake avoid tobacco use albuterol inhaler 2 puffs every 4 hours as needed prednisone taper followup if symptoms worsen - My Orders Last 24 Hours: My Active Orders 12/17/18 19:56 RT Aerosol Therapy [RC] ASDIRECTED 12/17/18 19:59 CULTURE STREP A CONFIRMATION [RM] Stat STREP SCRN A RAPID W CULT CONF [] Stat - Assessment/Plan Last 24 Hours: My Active Orders 12/17/18 19:56 RT Aerosol Therapy [RC] ASDIRECTED 12/17/18 19:59 CULTURE STREP A CONFIRMATION [RM] Stat STREP SCRN A RAPID W CULT CONF [] Stat
== END 2018-12-17 20:32 | disposition home or self-care (01) ==
LOC: DL.ED 17:39
DX: J45.41 Moderate persistent asthma with (acute) exacerbation (principal); J02.9 Acute pharyngitis, unspecified; H66.003 Acute suppurative otitis media without spontaneous rupture of ear drum, bilateral; E66.9 Obesity, unspecified; Z68.42 Body mass index [BMI] 45.0-49.9, adult; F17.210 Nicotine dependence, cigarettes, uncomplicated; Z88.0 Allergy status to penicillin; Z88.8 Allergy status to other drugs, medicaments and biological substances; Z79.899 Other long term (current) drug therapy
CPT/HCPCS: 87081; 87430; 94640; 99283; A9270; J7620-GY

== ENCOUNTER 2021-08-18 23:43 | Emergency (ER) | payer MEDICAID ==
[2021-08-19 00:01] VITALS: BP 154/95; PULSE 87
[2021-08-19 00:39] LABS: ANION GAP 12.8 mEq/L (7-13); CHLORIDE,CL 105 mmol/L (98-107); SODIUM,NA 138 mmol/L (136-145)
== END 2021-08-19 01:02 | disposition home or self-care (01) ==
LOC: DL.ED 23:43
DX: J02.9 Acute pharyngitis, unspecified (principal); E66.9 Obesity, unspecified; Z68.42 Body mass index [BMI] 45.0-49.9, adult; Z88.0 Allergy status to penicillin; Z88.8 Allergy status to other drugs, medicaments and biological substances; Z72.0 Tobacco use
CPT/HCPCS: 36415; 80053; 85025; 99282; 99283

== ENCOUNTER 2023-09-30 23:51 | Emergency (ER) | payer MEDICAID ==
[2023-10-01 00:40] VITALS: BP 145/89; PULSE 60
== END 2023-10-01 01:07 | disposition home or self-care (01) ==
LOC: DL.ED 23:51
DX: M25.561 Pain in right knee (principal); E66.9 Obesity, unspecified; Z88.0 Allergy status to penicillin; Z88.8 Allergy status to other drugs, medicaments and biological substances; Z68.43 Body mass index [BMI] 50.0-59.9, adult; X50.1XXA Overexertion from prolonged static or awkward postures, initial encounter
CPT/HCPCS: 99283

== ENCOUNTER 2024-10-29 10:16 | Inpatient (IN) | payer MEDICAID ==
[~2024-10-29 10:16] MED LIST changes: +Aluminum Hydroxide/Magnesium Hydroxide/Simethicone Susp 30 ML Cup PO PRN; +Carboprost Tromethamine 250 MCG/1 ML Amp IM PRN; +Lactated Ringers 1,000 ML IV SCH; -Midazolam 1 MG/ML 2 ML SDV ONE; +Ondansetron 4 MG Tab.DIS PO PRN; +Oxytocin 10 Units/1 ML SDV IM PRN; +Oxytocin/Lactated Ringers 30 UNIT/500 ML BAG IV SCH; +Promethazine 25 MG/ML SDV IM PRN; +Sodium Chloride 0.9% 10 ML Syringe FLUSH PRN; -fentaNYL 100 MCG/2 ML SDV ONE
[2024-10-29] MEDS: Lactated Ringers 1,000 ML IV SCH (10:30)
[2024-10-29] MEDS ORDERED: Oxytocin/Normal Saline 30 UNIT/500 ML BAG ONE ×2 (11:07→13:04)
[2024-10-29 11:11] LABS: BASOPHILS PERCENT AUTO 0.3 % (0.0-1.0); EOSINOPHILS PERCENT AUTO 2.3 % (1.0-3.0); LYMPHOCYTES PERCENT AUTO 37.3 % (20.5-50.1); MONOCYTES PERCENT AUTO 8.0 % (2-8); NEUTROPHILS PERCENT AUTO 52.1 % (42.2-75.2); PLATELET COUNT,PLT 332 10^3/uL (150-450); RED BLOOD CELL COUNT 4.38 10^6/uL (4.2-5.4); WHITE BLOOD CELL COUNT,WBC 8.8 10^3/uL (5.0-10.0)
[2024-10-29 12:43] LABS: CREATININE,URINE RAND 33.64 mg/dL (No establ ref range)
[2024-10-29 12:55] LABS: PROTEIN,URINE RANDOM < 6.0 mg/dL (0.0-11.9)
[2024-10-29] MEDS ORDERED: ePHEDrine 50 MG/ML SDV IVPUSH PRN (13:24)
[2024-10-29] MEDS ORDERED: Carboprost Tromethamine 250 MCG/1 ML Amp IM PRN (13:24)
[2024-10-29] MEDS ORDERED: Acetaminophen/HYDROcodone 325-5 MG Tab PO PRN (13:24)
[2024-10-29] MEDS ORDERED: Acetaminophen/oxyCODONE 325-5 MG Tab PO PRN (13:24)
[2024-10-29] MEDS: diphenhydrAMINE 50 MG/ML SDV IVPUSH ONE (14:07)
[2024-10-29] MEDS: Oxytocin/Normal Saline 30 UNIT/500 ML BAG IV SCH (14:21)
[2024-10-29] MEDS ORDERED: Dexamethasone 4 MG/ML SDV ONE (14:55)
[2024-10-29] MEDS ORDERED: ePHEDrine 50 MG/ML SDV ONE (14:57)
[2024-10-29] MEDS ORDERED: Ondansetron 4 MG/2 ML SDV ONE (14:58)
[2024-10-29] MEDS ORDERED: Ketorolac 30 MG/ML SDV ONE (14:59)
[2024-10-29] MEDS: Sodium Chloride 0.9% 10 ML Syringe FLUSH SCH (15:51)
[2024-10-29] MEDS: Ondansetron 4 MG/2 ML SDV IVPUSH PRN (16:02)
[2024-10-29] MEDS: Ketorolac 30 MG/ML SDV IVPUSH SCH ×2 (16:18→18:44)
[2024-10-29] MEDS: diphenhydrAMINE 50 MG/ML SDV IVPUSH PRN (16:20)
[2024-10-29] MEDS: Promethazine 25 MG/ML SDV IM ONE (17:43)
[2024-10-30 06:01] LABS: PLATELET COUNT,PLT 305.0 10^3/uL (150-450); RED BLOOD CELL COUNT 3.86 10^6/uL (4.2-5.4); WHITE BLOOD CELL COUNT,WBC 11.6 10^3/uL (5.0-10.0)
[2024-10-30] MEDS: Prenatal Multivitamin with Calcium/Folic Acid/Iron Tab PO SCH (07:36)
[2024-10-30] MEDS: Acetaminophen/oxyCODONE 325-5 MG Tab PO PRN (14:54)
[2024-10-30] MEDS ORDERED: Take Home: Acetaminophen/HYDROcodone 325-5 MG, 5 Tab Pack PO ONE (19:32)
[2024-10-30] MEDS ORDERED: Ropivacaine 100 ML EPIDUR ONE (20:44)
[2024-10-30] MEDS ORDERED: Lactated Ringers 1,000 ML IV ONE (20:44)
[2024-10-30] MEDS ORDERED: Dexamethasone 4 MG/ML SDV IV ONE (20:44)
[2024-10-30] MEDS ORDERED: Ketorolac 30 MG/ML SDV IVPUSH ONE (20:44)
[2024-10-30] MEDS ORDERED: Ondansetron 4 MG/2 ML SDV IV ONE (20:44)
[2024-10-30] MEDS ORDERED: ePHEDrine 50 MG/ML SDV IV ONE (20:44)
[2024-10-30 21:30] VITALS: BP 125/72; PULSE 56
== END 2024-10-30 20:45 | disposition home or self-care (01) | DRG 788 ==
LOC: DL.OB 10:16 → OBSVTOIN 13:22
PROVIDERS: ADMIT Student in an Organized Health Care Education/Training Program; ATTEND Student in an Organized Health Care Education/Training Program
PROC: 10D00Z1 Extraction of Products of Conception, Low, Open Approach (ICD-10-PCS; principal; 2024-10-29 12:00)
DX: O24.420 Gestational diabetes mellitus in childbirth, diet controlled (principal); Z3A.39 39 weeks gestation of pregnancy; Z37.0 Single live birth; Z88.0 Allergy status to penicillin; Z79.899 Other long term (current) drug therapy; Z88.8 Allergy status to other drugs, medicaments and biological substances; O99.214 Obesity complicating childbirth; O99.824 Streptococcus B carrier state complicating childbirth
CPT/HCPCS: 36415; 59025; 82570; 82947; 84156; 85025; 85027; 86850; 86900; 86901; 94010; A9270-GY; J1200; J1885; J2405; J2550; J2590; J7120